=== PATIENT | female | born 1980 | race Caucasian/White ===

== ENCOUNTER 2016-11-01 12:17 | Emergency (ER) | payer OTHER ==
[2016-11-01 12:22] VITALS: BP 150/82; PULSE 107; TEMP 98.3; BMI 35.2
--- NOTE | 2016-11-01 13:00 | PDOC ---
"History of Present Illness - General Chief Complaint: Injury Stated Complaint: INJURY Time Seen by Provider: 11/01/16 12:29 History Source: Patient Exam Limitations: No Limitations - History of Present Illness Initial Comments: 11/01/16 13:44 My chief complaint: Right knee pain after falling History of present illness: Patient is a 36-year-old female with no significant medical history here today complaining of severe right knee pain after falling onto her right knee 3 days ago. Patient has slight swelling of her medial knee answered breath patella knee. Patient is having difficulty ambulating due to pain. Patient is unable to take any pain medication due to allergy to acetaminophen, aspirin, and ibuprofen. Patient denies any other injuries. Patient denies hitting her head. Patient denies any numbness of her right leg. Occurred: reports: other (3 days ago ) Severity: reports: severe Pain Location: reports: lower extremity (right knee-pain ) Method of Injury: Yes: fall (unto rt. knee) Modifying Factors: improves with: immobilization Loss of Consciousness: no loss of consciousness Associated Symptoms (Fall): trouble walking Past History - Past Medical History Allergies/Adverse Reactions: Allergies Allergy/AdvReac Type Severity Reaction Status Date / Time acetaminophen Allergy Verified 11/01/16 12:19 aspirin Allergy Verified 11/01/16 12:19 ibuprofen Allergy Verified 11/01/16 12:19 Home Medications: Ambulatory Orders Tramadol HCl [Ultram -] 50 mg PO Q6H PRN #12 tablet MDD 4 11/01/16 Anemia: No Other medical history: none - Surgical History Abdominal Surgery: Yes (umb.hernia) - Reproductive History (#): 3 Para: 2 Spontaneous : 1 - Immunization History Immunization Up to Date: Yes - Psycho/Social/Smoking Cessation Hx Anxiety: No Suicidal Ideation: No Smoking History: Never smoked Have you smoked in the past 12 months: No Information on smoking cessation initiated: No Hx Alcohol Use: No Drug/Substance Use Hx: No Substance Use Type: None Hx Substance Use Treatment: No Review of Systems - Review of Systems Able to Perform ROS?: Yes Constitutional: No: Symptoms Reported HEENTM: No: Symptoms Reported Respiratory: No: Symptoms reported Cardiac (ROS): No: Symptoms Reported ABD/GI: No: Symptoms Reported : No: Symptoms Reported Musculoskeletal: Yes: Joint Pain (right knee pain with swelling ), Joint Swelling (rt. swelling ) Integumentary: No: Symptoms Reported Neurological: No: Symptoms reported *Physical Exam - Vital Signs Last Vital Signs Temp Pulse Resp BP Pulse Ox 98.3 F 107 H 18 150/82 100 11/01/16 12:20 11/01/16 12:20 11/01/16 12:20 11/01/16 12:20 11/01/16 12:20 - Physical Exam General Appearance: Yes: Appropriately Dressed Respiratory/Chest: positive: Lungs Clear, Normal Breath Sounds Cardiovascular: positive: Regular Rhythm, Regular Rate, S1, S2 Vascular Pulses: Dorsalis-Pedis (R): 4+ Musculoskeletal: positive: Normal Inspection. negative: CVA Tenderness, CVA Tenderness (R), CVA Tenderness (L) Extremity: positive: Normal Capillary Refill, Normal Range of Motion (rt. knee ) , Tender (rt. patella ), Swelling (rt. medial knee, rt. suprapatella ) Integumentary: positive: Normal Color, Swelling (rt. medial patella edema, rt. suprapatella ) Neurologic: positive: Normal Response, Respond to painful stimul (rt. leg ), Responsive. negative: Numbness, Sensory Deficit (rt. knee ) Procedures - Consent Consent obtained: Verbal, From Patient - Splinting Splint Location: Right: Knee Pre-Proc Neuro Vasc Exam: normal Pre-Made Type: knee immobilizer Post-Proc Neuro Vasc Exam: normal Complications: No Progress: 11/01/16 13:52 11/01/16 14:02 ED Treatment Course - ADDITIONAL ORDERS Additional order review: Laboratory Results 11/01/16 12:45 Urine HCG, Qual Negative Medical Decision Making - Medical Decision Making 11/01/16 13:43 Patient is a 36-year-old female with no significant medical history here today complaining of severe right knee pain after falling onto her right knee 3 days ago. Patient has slight swelling of her medial knee answered breath patella knee. Patient is having difficulty ambulating due to pain. Patient is unable to take any pain medication due to allergy to acetaminophen, aspirin, and ibuprofen. Patient denies any other injuries. Patient denies hitting her head. Patient denies any numbness of her right leg. Fall Rt. knee pain r/o fracture or joint effusion knee pain right PLAN: xray rt. knee no acute pathology, no jt effusion, DJD, medial swelling per Eloy Brasher rt. knee immoblizer ultram 50 mg po now than every 6 hrs prn pain # 12 tabs cane given 11/01/16 13:44 11/01/16 13:46 11/01/16 13:53 11/01/16 13:56 11/01/16 13:58 follow up with orthopedist 11/02/16 11/01/16 14:02 11/01/16 14:15 Search Terms: Zainab Gates, 1980 Search Date: 11/01/2016 02:15:18 PM The Drug Utilization Report below displays all of the controlled substance prescriptions, if any, that your patient has filled in the last twelve months. The information displayed on this report is compiled from pharmacy submissions to the Department, and accurately reflects the information as submitted by the pharmacies. This report was requested by: Bertha Massey | Reference #: [id number] Others' Prescriptions Patient Name: Zainab Gates Date: 1980 Address: [address] [place] [address] Sex: Female Rx Written Rx Dispensed Drug Quantity Days Supply Prescriber Name 02/18/2016 02/19/2016 oxycodone-acetaminophen 5-325 mg tab 20 5 Oleg Ramirez MD 02/14/2016 02/15/2016 tramadol hcl 50 mg tablet 14 3 Flaquita Jackson NP 11/01/16 19:08 *DC/Admit/Observation/Transfer Diagnosis at time of Disposition: Knee pain, right Qualifiers: Chronicity: acute Qualified Code(s): M25.561 - Pain in right knee Fall Qualifiers: Encounter type: initial encounter Qualified Code(s): W19.XXXA - Unspecified fall, initial encounter - Discharge Dispostion Disposition: HOME Condition at time of disposition: Stable - Prescriptions Prescriptions: Tramadol HCl [Ultram -] 50 mg PO Q6H PRN #12 tablet MDD 4 PRN Reason: Pain - Referrals Referrals: Jarred Ferrer MD [Staff Physician] - - Patient Instructions Additional Instructions: Keep knee immobilizer in place during the day may take off at night elevate your right leg as much as possible and apply ice every 2 hours for 15-20 minutes each time Use Cane for ambulation Call the orthopedist office tomorrow at 9 AM tell them that she was seen here today and that she will need follow-up for further evaluation of urine knee Return to emergency room if symptoms worsen or new symptoms develop however you need to follow up with the orthopedist as soon as possible Patient voiced understanding of discharge instructions and all questions were answered Mantenga el inmovilizador de fiordaliza en friedman lugar francis el da puede despegar en la noche elevar friedman pierna derecha tanto flo sea posible y aplicar hielo cada 2 horas francis 15-20 minutos cada vez Use Cane para la ambulacin Llame a la oficina de ortopedia maana a las 9 AM dgales que suki fue vista aqu hoy y que suki necesitar un seguimiento para natalya evaluacin ms profunda de la orina rodilla [place] a la merari de emergencias si los sntomas empeoran o si se desarrollan nuevos sntomas, sin embargo, usted necesita hacer un seguimiento con el ortopedista lo antes posible Comprensin del paciente sobre las instrucciones de guillermina y todas las preguntas fueron contestadas"
[2016-11-01] MEDS ORDERED: traMADol HCL 50 MG TABLET PO ONE (13:56)
[2016-11-01] MEDS ORDERED: traMADol HCL 50 MG TABLET ONE (14:06)
== END 2016-11-01 14:26 | disposition home or self-care (01) ==
LOC: JERFT 12:17
PROC: 2W3LXYZ Immobilization of Right Lower Extremity using Other Device (ICD-10-PCS; principal; 2016-11-01)
DX: M25.561 Pain in right knee (principal)
CPT/HCPCS: 29530; 73562-TC-RT; 84703; 99282-25

== ENCOUNTER 2017-07-11 16:57 | Inpatient (IN) | payer OTHER ==
[2017-07-11 17:01] VITALS: BMI 36.6
[2017-07-11] MEDS ORDERED: morphine CARPU-JECT 4 MG/1 ML DISP.SYRIN IVPUSH ONE ×2 (17:44→23:00)
[2017-07-11] MEDS ORDERED: morphine SULFATE 4 MG/ML VIAL ONE ×2 (17:52→23:36)
--- NOTE | 2017-07-11 18:15 | PDOC ---
History of Present Illness - General Chief Complaint: Pain, Acute Stated Complaint: STOMACH PAIN Time Seen by Provider: 07/11/17 17:35 - History of Present Illness Initial Comments: 07/11/17 18:11 36 y.o. female presents c/o 1 day h/o of abdominal pain. Patient states the pain is epigastric, sharp, constant, 10/10, radiating to her left side without any nausea/vomiting or diarrhea/constipation or fevers/chills. Patient states the pain is similar to the pain during her ventral hernia. Patient has been limitedly tolerating oral intake, but notes decreased appetite 2/2 to her symptoms. Patient notes her last BM was this morning and was normal. Patient' s LMP was last 2 weeks previous and she is currently in a sexually monagmous relationship with her . Past History - Past Medical History Allergies/Adverse Reactions: Allergies Allergy/AdvReac Type Severity Reaction Status Date / Time acetaminophen Allergy Verified 07/11/17 16:58 aspirin Allergy Verified 07/11/17 16:58 ibuprofen Allergy Verified 07/11/17 16:58 Home Medications: Ambulatory Orders NK [No Known Home Medication] 07/11/17 Anemia: No COPD: No Other medical history: DENIES. - Surgical History Abdominal Surgery: Yes (umb.hernia) - Reproductive History (#): 3 Para: 2 Spontaneous : 1 - Immunization History Immunization Up to Date: Yes - Suicide/Smoking/Psychosocial Hx Smoking History: Never smoked Have you smoked in the past 12 months: No Hx Alcohol Use: No Drug/Substance Use Hx: No Substance Use Type: None Hx Substance Use Treatment: No Review of Systems - Review of Systems Constitutional: No: Chills, Fever HEENTM: No: Recent change in vision Respiratory: No: Cough, Shortness of Breath Cardiac (ROS): No: Chest Pain ABD/GI: No: Diarrhea, Nausea, Vomiting, Abdominal cramping : No: Burning, Dysuria *Physical Exam - Vital Signs Last Vital Signs Temp Pulse Resp BP Pulse Ox 98.3 F 97 H 16 130/77 99 07/11/17 16:59 07/11/17 16:59 07/11/17 16:59 07/11/17 16:59 07/11/17 16:59 - Physical Exam General Appearance: Yes: Nourished, Obese HEENT: positive: EOMI, MICK Neck: positive: Trachea midline, Supple Respiratory/Chest: positive: Lungs Clear Cardiovascular: positive: S1, S2 Gastrointestinal/Abdominal: positive: Normal Bowel Sounds, Tenderness ( epigastric, LUQ/LLQ). negative: Guarding, Rebound, Hernia, Mass Musculoskeletal: negative: CVA Tenderness (R), CVA Tenderness (L) Integumentary: positive: Normal Color, Dry, Warm Neurologic: positive: Fully Oriented, Alert ED Treatment Course - LABORATORY CBC & Chemistry Diagram: 07/11/17 18:00 07/11/17 17:47 - Medications Given in the ED: ED Medications Discontinued Medications Generic Name Dose Route Start Last Admin Trade Name Freq PRN Reason Stop Dose Admin Morphine Sulfate 4 mg 07/11/17 17:44 07/11/17 18:08 Morphine Injection - IVPUSH 07/11/17 17:45 4 mg ONCE ONE Administration Medical Decision Making - Medical Decision Making 07/12/17 03:38 36 y.o. female with epigastric abdominal pain without systemic signs of infection. Patient exquisitely tender on PE. DDx includes early onset appendicitis, acute fer, hernia as well as diverticular disease (some radiation to L side) and . Will obtain CT Abdomen, GB U/S. Pain control with Morphine. Patient to be signed out Dr. Cotter (Resident) and Dr. Cazares (Attending). *DC/Admit/Observation/Transfer Diagnosis at time of Disposition: Cholecystitis, Intractable abdominal pain, Gallstones - Discharge Dispostion Condition at time of disposition: Guarded - Referrals - Patient Instructions - Post Discharge Activity
[2017-07-11 18:18] LABS: BASO % 0.4 % (0-2.0); EOS % 1.7 % (0-4.5); HEMATOCRIT 37.2 % (32.4-45.2); HEMOGLOBIN 12.4 GM/dL (10.7-15.3); LYMPH % 26.6 % (8-40); MCH 27.8 pg (25.7-33.7); MCHC 33.4 g/dl (32.0-36.0); MEAN CELL VOLUME 83.4 fl (80-96); MEAN PLT VOLUME 9.4 fl (7.5-11.1); MONO % 6.9 % (3.8-10.2); NEUT % 64.4 % (42.8-82.8); PLATELET COUNT 287 K/MM3 (134-434); RBC 4.46 M/mm3 (3.60-5.2); WHITE BLOOD COUNT 8.7 K/mm3 (4.0-10.0)
[2017-07-11 18:35] LABS: INR 1.04 (0.82-1.09); PROTHROMBIN TIME (PATIENT) 11.7 SEC (9.98-11.88)
[2017-07-11] MEDS ORDERED: FAMOTIDINE IV 20 MG/12 ML VIAL IVPUSH ONE (18:44)
[2017-07-11] MEDS ORDERED: PANTOPRAZOLE SODIUM 40 MG VIAL IVPUSH ONE (18:44)
[2017-07-11] MEDS ORDERED: MAG HYDROX/AL HYDROX/SIMETH 30 ML UNIT-DOSE CUP PO ONE (18:44)
[2017-07-11] MEDS ORDERED: SODIUM CHLORIDE 1,000 ML IV STA (18:44)
[2017-07-11] MEDS ORDERED: MAG HYDROX/AL HYDROX/SIMETH 30 ML UNIT-DOSE CUP ONE (18:46)
[2017-07-11] MEDS ORDERED: PANTOPRAZOLE SODIUM 40 MG VIAL ONE (18:47)
[2017-07-11] MEDS ORDERED: ONDANSETRON 4 MG/2 ML VIAL ONE ×2 (18:47→20:25)
[2017-07-11 18:48] LABS: ALBUMIN 3.6 g/dl (3.4-5.0); ANION GAP 9 (8-16); BILIRUBIN,TOTAL 0.7 mg/dL (0.2-1.0); BLOOD UREA NITROGEN 15 mg/dL (7-18); CALCIUM 8.9 mg/dL (8.5-10.1); CHLORIDE 103 mmol/L (98-107); CO2 28 mmol/L (21-32); CREATININE 0.6 mg/dL (0.55-1.02); GLUCOSE,RANDOM 83 mg/dL (74-106); LIPASE 171 U/L (73-393); POTASSIUM 4.3 mmol/L (3.5-5.1); SGOT/AST 15 U/L (15-37); SGPT/ALT 24 U/L (12-78); SODIUM 140 mmol/L (136-145); TOT PROT 7.6 g/dl (6.4-8.2)
[2017-07-11 18:49] LABS: ALK PHOS 54 U/L (45-117)
--- NOTE | 2017-07-11 18:54 | PDOC ---
Attending Attestation - Resident Resident Name: JesseZahira - ED Attending Attestation I have performed the following: I have examined & evaluated the patient, The case was reviewed & discussed with the resident, I agree w/resident's findings & plan, Exceptions are as noted - HPI HPI: 07/11/17 18:55 36 old female with past mental history of obesity, umbilical hernia surgery presents with upper abdominal pain and vomiting. Patient reported the pacer yesterday and is intermittent. She reports some nausea but denies any fevers or chills. Denies diarrhea. Denies dysuria. - Physicial Exam PE: 07/11/17 18:56 GENERAL: Awake, alert, and fully oriented. Uncomfortable appearing. Obese HEAD: No signs of trauma EYES: PERRLA, EOMI, sclera anicteric, conjunctiva clear ENT: Auricles normal inspection, hearing grossly normal, nares patent. NECK: Normal ROM, supple LUNGS: Breath sounds equal, clear to auscultation bilaterally. No wheezes, and no crackles HEART: Regular rate and rhythm, normal S1 and S2, no murmurs, rubs or gallops ABDOMEN: Soft, TTP epigastric. Castro sign negative. No guarding, no rebound. No masses EXTREMITIES: Normal range of motion, no edema. No clubbing or cyanosis. No cords, erythema, or tenderness NEUROLOGICAL: Cranial nerves II through XII grossly intact. Normal speech, normal gait SKIN: Warm, Dry, normal turgor, no rashes or lesions noted. - Medical Decision Making 07/11/17 19:00 Vital Signs Temp Pulse Resp BP Pulse Ox 98.3 F 97 H 16 130/77 99 07/11/17 16:59 07/11/17 16:59 07/11/17 16:59 07/11/17 16:59 07/11/17 16:59 Differential includes gastritis, pancreatitis, biliary colic, bowel obstruction. Labs, Ultrasound, CT abdomen and pelvis. Reassess. <Samson Valle - Last Filed: 07/11/17 18:44> - Medical Decision Making 07/11/17 21:30 Patient Name: KALEN MATA THIS IS A PRELIMINARY REPORT FROM [facility] DATE OF SERVICE: 2017-07-11 19:56:09 IMAGES: 481 EXAM: ABDOMEN \T\ PELVIS CT W/O CONTR HISTORY: Abdominal pain COMPARISON: None. FINDINGS: There is mild dependent atelectasis at the lung bases The gallbladder is filled with stones. The gallbladder wall does not appear significantly thickened. There is no pericholecystic edema. Correlate clinically for right upper quadrant symptoms. Consider further evaluation with ultrasound The liver is mildly enlarged The unenhanced upper abdominal visceral organs are otherwise unremarkable. There is no evidence of obstructive uropathy Umbilical hernia containing fat appears uncomplicated No bowel distention A normal appendix is visualized Mild to moderate fecal retention predominantly in the right and transverse colon An IUD is noted which appears to be normally positioned within the uterus There is no intra-abdominal free air or free fluid THIS DOCUMENT HAS BEEN ELECTRONICALLY SIGNED 07/11/17 22:26 Patient Name: KALEN MATA THIS IS A PRELIMINARY REPORT FROM [facility] DATE OF SERVICE: 2017-07-11 20:49:16 IMAGES: 52 EXAM: Ultrasound abdomen right upper quadrant HISTORY: Right upper quadrant COMPARISON: Abdomen and pelvis CT from earlier on the same date FINDINGS: The gallbladder is filled with shadowing stones with wall echo shadowing. The gallbladder wall is thickened measuring 4.1 mm. No definite pericholecystic fluid although shadowing limits evaluation somewhat. Presence or absence of a sonographic Castro's sign was not reported Findings are concerning for cholecystitis. If there is ongoing clinical concern further evaluation with hepatobiliary scan may be helpful The common bile duct is within normal limits measuring 3.5 mm The liver is enlarged measuring 19.5 cm in sagittal length. Heterogeneous areas of increased echogenicity may be related to steatosis. No intrahepatic biliary dilatation. The portal and hepatic veins are patent Visualized portions of the pancreatic head and body appear normal. The tail is obscured by overlying bowel gas The right kidney and visualized portions of the abdominal aorta are unremarkable THIS DOCUMENT HAS BEEN ELECTRONICALLY SIGNED 07/12/17 01:47 Pt admitted to surgeon Dr. Rose. <Ana Cazares - Last Filed: 07/12/17 01:47>
[2017-07-11] MEDS ORDERED: ACETAMINOPHEN 1000 MG/100 ML VIAL (NON FORMULARY) IVPB ONE (19:23)
--- NOTE | 2017-07-11 19:23 | PDOC ---
*Physical Exam - Vital Signs Last Vital Signs Temp Pulse Resp BP Pulse Ox 98.3 F 97 H 16 130/77 99 07/11/17 16:59 07/11/17 16:59 07/11/17 16:59 07/11/17 16:59 07/11/17 16:59 07/11/17 19:15 36 YOF with h/o ventral hernia who p/w one day epigastric pain radiating to left side similar to prior ventral hernia pain. No f/c/n/v/d/c, BM in the past day was normal. Blood labs unremarkable, awaiting UA and Cx, US gallbladder, CT abdomen/pelvis w/o contrast. Ofirmev ordered as patient remains in pain after 4 mg morphine. May consider Dilaudid if persistent pain after this. Patient still nauseated and some dry heaves so another 4 mg Zofran ordered. - Physical Exam General Appearance: Yes: Nourished, Moderate Distress, Obese, Other (tearful and very uncomfortable appearing adult female, answering questions appropriately , Mohawk-speaking) Gastrointestinal/Abdominal: positive: Tender (moderate epigastric tenderness to palpation, no palpable hernia), Soft. negative: Pulsatile Mass, Hepatomegaly, Spleenomegaly ED Treatment Course - LABORATORY CBC & Chemistry Diagram: 07/11/17 18:00 07/11/17 17:47 - ADDITIONAL ORDERS Additional order review: Laboratory Results 07/11/17 07/11/17 07/11/17 18:00 17:47 17:47 PT with INR 11.70 INR 1.04 Sodium Potassium Chloride Carbon Dioxide Anion Gap BUN Creatinine Creat Clearance w eGFR Random Glucose Lactic Acid Calcium Total Bilirubin AST ALT Alkaline Phosphatase Creatine Kinase 85 Troponin I < 0.02 Total Protein Albumin Lipase Serum , Qual Negative 07/11/17 07/11/17 17:47 17:47 PT with INR INR Sodium 140 Potassium 4.3 Chloride 103 Carbon Dioxide 28 Anion Gap 9 BUN 15 Creatinine 0.6 Creat Clearance w eGFR > 60 Random Glucose 83 Lactic Acid 1.5 Calcium 8.9 Total Bilirubin 0.7 D AST 15 ALT 24 Alkaline Phosphatase 54 Creatine Kinase Troponin I Total Protein 7.6 Albumin 3.6 Lipase 171 Serum , Qual 07/11/17 18:00 RBC 4.46 MCV 83.4 MCHC 33.4 RDW 14.0 MPV 9.4 Neutrophils % 64.4 Lymphocytes % 26.6 Monocytes % 6.9 Eosinophils % 1.7 Basophils % 0.4 - Medications Given in the ED: ED Medications Discontinued Medications Generic Name Dose Route Start Last Admin Trade Name Avinash PRN Reason Stop Dose Admin Al Hydroxide/Mg Hydroxide 30 ml 07/11/17 18:44 07/11/17 18:45 Mylanta Oral Suspension - PO 07/11/17 18:45 30 ml ONCE ONE Administration Famotidine 20 mg in 12 mls @ 144 mls/hr 07/11/17 18:44 07/11/17 18:45 Pepcid 20 Mg/12 Ml Push IVPUSH 07/11/17 18:48 144 mls/hr ONCE ONE Administration Morphine Sulfate 4 mg 07/11/17 17:44 07/11/17 18:08 Morphine Injection - IVPUSH 07/11/17 17:45 4 mg ONCE ONE Administration Pantoprazole Sodium 40 mg 07/11/17 18:44 07/11/17 18:45 Protonix Iv IVPUSH 07/11/17 18:45 40 mg ONCE ONE Administration Medical Decision Making - Medical Decision Making Patient notes no Tylenol allergy. Allergy only to ASA. 07/11/17 21:[address] abdomen/pelvis the GB is filled with stones, otherwise no obvious e/o cholecystitis or obstruction. Mild hepatomegaly, IUD with good placement in uterus, small fat-containing umbilical hernia. 07/11/17 23:01 On RUQ US the gallbladder is filled with shadowing stones, there is wall thickening (4.1mm). Spoke with Dr. Rose who will try to add the patient onto the OR schedule tomorrow. Patient's pain was initially controlled after Ofirmev, now it is coming back. 2 mg Morphine IV ordered. 07/12/17 00:14 Decision to Admit order placed to OR, Dr. Rose. Patient has no PCP currently. *DC/Admit/Observation/Transfer Diagnosis at time of Disposition: Cholecystitis, Intractable abdominal pain, Gallstones - Discharge Dispostion Condition at time of disposition: Guarded Admit: Yes - Referrals - Patient Instructions - Post Discharge Activity
[2017-07-11] MEDS ORDERED: ONDANSETRON 4 MG/2 ML VIAL IVPUSH ONE (19:41)
[2017-07-11] MEDS ORDERED: ACETAMINOPHEN INJECTION 100 ML IVPB ONE (20:24)
[2017-07-12] MEDS ORDERED: cefOXitin SODIUM 2 GM VIAL (RESTRICTED TO ID) IVPB ONE ×3 (00:11→23:00)
[2017-07-12] MEDS ORDERED: CEFOXITIN SODIUM 2 GM in DEXTROSE 5%-WATER - 100 ML IVPB ONE ×2 (00:30→23:00)
[2017-07-12] MEDS ORDERED: ONDANSETRON 4 MG/2 ML VIAL IVPUSH PRN (01:00)
[2017-07-12] MEDS: DEXTROSE 5%-0.45% SALINE 1,000 ML IV SCH ×2 (01:02→11:23)
[2017-07-12] MEDS ORDERED: MORPHINE SULFATE 10 MG/1 ML *VIAL ONE (06:01)
[2017-07-12] MEDS: morphine SULFATE 4 MG/ML VIAL IVPUSH PRN ×2 (06:15→09:45)
[2017-07-12] MEDS ORDERED: FAMOTIDINE 20 MG/50 ML IVPB 20 MG/50 ML MG IVPB SCH (10:00)
[2017-07-12 10:49] LABS: BASO % 0.4 % (0-2.0); EOS % 2.1 % (0-4.5); HEMATOCRIT 35.8 % (32.4-45.2); HEMOGLOBIN 11.9 GM/dL (10.7-15.3); LYMPH % 34.9 % (8-40); MCH 27.8 pg (25.7-33.7); MCHC 33.3 g/dl (32.0-36.0); MEAN CELL VOLUME 83.5 fl (80-96); MEAN PLT VOLUME 8.9 fl (7.5-11.1); MONO % 6.3 % (3.8-10.2); NEUT % 56.3 % (42.8-82.8); PLATELET COUNT 257 K/MM3 (134-434); RBC 4.28 M/mm3 (3.60-5.2); RDW 14.1 % (11.6-15.6); WHITE BLOOD COUNT 6.6 K/mm3 (4.0-10.0)
[2017-07-12 11:06] LABS: ANION GAP 6 (8-16); BILIRUBIN,TOTAL 1.1 mg/dL (0.2-1.0); BLOOD UREA NITROGEN 7 mg/dL (7-18); CALCIUM 7.7 mg/dL (8.5-10.1); CHLORIDE 107 mmol/L (98-107); CO2 26 mmol/L (21-32); CREATININE 0.5 mg/dL (0.55-1.02); GLUCOSE,RANDOM 79 mg/dL (74-106); LIPASE 130 U/L (73-393); POTASSIUM 3.8 mmol/L (3.5-5.1); SGOT/AST 11 U/L (15-37); SGPT/ALT 18 U/L (12-78); SODIUM 139 mmol/L (136-145); TOT PROT 6.4 g/dl (6.4-8.2)
[2017-07-12 11:07] LABS: ALBUMIN 0.5 g/dl (3.4-5.0); ALK PHOS 44 U/L (45-117)
--- NOTE | 2017-07-12 12:49 | HP ---
Admitting History and Physical - Admission Chief Complaint: epigastric pain radiating to LUQ, nausea History of Present Illness: 36yo obese F with no sig medical hx, s/p laparoscopic umbilical hernia repair, 2 , IUD placement, presented to ER with 2d of epigastric pain radiating toward LUQ, associated with nausea but no vomiting, decreased po intake, chills but no fever, some difficulty breathing secondary to pain. In ER, she was afebrile, wbc normal, LFTs and lipase normal, and CT showed gallbladder full of stones, distended, suspicious for cholecystitis. US then confirmed many shadowing stones and wall shadowing with slightly thickened wall. She got IVF and was given a dose of Cefoxitin early am and has been NPO. Her pain has improved with medication, nausea in ER responded to multiple doses of Zofran. She voided twice yesterday, only once so far today. She has no PCP. History Source: Patient Limitations to Obtaining History: Language Barrier (Kiswahili - facilitated by Raghav Villeda at bedside) - Past Medical History ...LMP: 06/10/17 ...LMP Comment: IUD in place 7 mths ago, light period ...: No Additional Past Medical History: umbilical hernia - Past Surgical History Past Surgical History: Yes: Hernia Repair (laparoscopic umbilical hernia repair) - Smoking History Smoking history: Never smoked Have you smoked in the past 12 months: No - Alcohol/Substance Use Hx Alcohol Use: Yes (social) History of Substance Use: reports: None - Social History Usual Living Arrangement: Yes: With Child ADL: Independent Home Medications - Allergies Allergies/Adverse Reactions: Allergies Allergy/AdvReac Type Severity Reaction Status Date / Time aspirin Allergy Rash Verified 07/12/17 12:46 - Home Medications Home Medications: Ambulatory Orders NK [No Known Home Medication] 07/11/17 Family Disease History - Family Disease History Family History: Unremarkable Review of Systems - Review of Systems Constitutional: reports: Chills. denies: Fever Eyes: denies: Blurred Vision, Recent Change in Vision HENT: denies: Hearing Loss, Throat Pain Neck: denies: Swollen Glands, Tenderness Cardiovascular: denies: Chest Pain, Palpitations Respiratory: reports: Other (had some difficulty breathing secondary to pain couple days ago). denies: Cough, SOB Gastrointestinal: reports: Abdominal Pain (with hpi), Constipation (tends to normally), Nausea (with hpi). denies: Diarrhea, Vomiting Genitourinary: denies: Burning, Dysuria Musculoskeletal: denies: Back Pain, Joint Pain, Muscle Pain Integumentary: denies: Change in Color, Rash Neurological: denies: Dizziness, Headache Physical Examination Vital Signs: Vital Signs Temperature 98.5 F 07/12/17 09:00 Pulse Rate 75 07/12/17 09:00 Respiratory Rate 20 07/12/17 09:00 Blood Pressure 117/81 07/12/17 09:00 O2 Sat by Pulse Oximetry (%) 98 07/12/17 09:00 Constitutional: Yes: No Distress, Calm, Obese Eyes: Yes: Conjunctiva Clear, EOM Intact. No: Sclera Icterus HENT: Yes: Atraumatic, Normocephalic Neck: Yes: Supple, Trachea Midline Cardiovascular: Yes: Regular Rate and Rhythm. No: Murmur Respiratory: Yes: Regular, CTA Bilaterally Gastrointestinal: Yes: Normal Bowel Sounds, Soft, Abdomen, Obese, Hernia ( umbilical small bulge palpable (and seen on CT)), Tenderness (mild epigastric RUQ, LUQ less, no R/G), Other (healed laparoscopic scars). No: Distention ...Rectal Exam: Yes: Deferred Renal/: No: CVA Tenderness - Left, CVA Tenderness - Right Musculoskeletal: No: Back Pain (no direct tenderness), Joint Swelling Extremities: No: Cool, Cyanosis Edema: No Peripheral Pulses WNL: Yes Integumentary: No: Jaundice, Rash Neurological: Yes: Alert, Oriented Psychiatric: Yes: Alert, Oriented Labs: CBC, BMP 07/12/17 10:20 07/12/17 10:20 CMP Sodium 139 mmol/L (136-145) 07/12/17 10:20 Potassium 3.8 mmol/L (3.5-5.1) 07/12/17 10:20 Chloride 107 mmol/L (98-107) 07/12/17 10:20 Carbon Dioxide 26 mmol/L (21-32) 07/12/17 10:20 Anion Gap 6 (8-16) L 07/12/17 10:20 BUN 7 mg/dL (7-18) 07/12/17 10:20 Creatinine 0.5 mg/dL (0.55-1.02) L 07/12/17 10:20 Creat Clearance w eGFR > 60 (>60) 07/12/17 10:20 Random Glucose 79 mg/dL (74-106) 07/12/17 10:20 Lactic Acid 1.5 mmol/L (0.0-2.0) 07/11/17 17:47 Calcium 7.7 mg/dL (8.5-10.1) L 07/12/17 10:20 Total Bilirubin 1.1 mg/dL (0.2-1.0) H D 07/12/17 10:20 AST 11 U/L (15-37) L 07/12/17 10:20 ALT 18 U/L (12-78) 07/12/17 10:20 Alkaline Phosphatase 44 U/L (45-117) L 07/12/17 10:20 Creatine Kinase 85 IU/L (26-192) 07/11/17 17:47 Troponin I < 0.02 ng/ml (0.00-0.05) 07/11/17 17:47 Total Protein 6.4 g/dl (6.4-8.2) 07/12/17 10:20 Albumin 0.5 g/dl (3.4-5.0) L 07/12/17 10:20 Lipase 130 U/L (73-393) 07/12/17 10:20 Serum , Qual Negative 07/11/17 17:47 bili up a little, others stable or down (normal) INR, PTT INR 1.04 (0.82-1.09) 07/11/17 18:00 Imaging - Results Cat Scan: Report Reviewed, Image Reviewed (images personally seen, gallbladder distended and large, full of stones, no biliary dilation seen) Ultrasound: Report Reviewed, Image Reviewed (lots of shadowing - gb appears full of stones, slightly thickened wall, no definite fluid around, cbd normal) Problem List - Problems (1) Calculus of gallbladder with acute cholecystitis without obstruction Assessment/Plan: admit 23H/satellite NPO until postop, IVF DVT prophylaxis periop antibiotics Discussed with patient risks, benefits and alternatives of laparoscopic possible open cholecystectomy, including but not limited to bleeding, infection , injury to adjacent structures, bile leak or ductal injury, intraabdominal abscess, need for further procedures, hernia; alternatives include antibiotics, delayed or no surgery - risks of this include sepsis, recurrence of cholecystitis, pancreatitis, . Patient desires to proceed with operation - will take to OR for above. Informed consent signed for same. pain meds prn Code(s): K80.00 - CALCULUS OF GALLBLADDER W ACUTE CHOLECYST W/O OBSTRUCTION (2) Umbilical hernia without obstruction and without gangrene Assessment/Plan: will avoid this area during surgery - recurrent hernia present with presumed underlying mesh Code(s): K42.9 - UMBILICAL HERNIA WITHOUT OBSTRUCTION OR GANGRENE (3) Epigastric pain Code(s): R10.13 - EPIGASTRIC PAIN (4) Obesity (BMI 35.0-39.9 without comorbidity) Code(s): E66.9 - OBESITY, UNSPECIFIED
[2017-07-12] MEDS ORDERED: BUPIVACAINE HCL/PF 0.5% (5MG/ML) 10 ML VIAL ONE (13:49)
[2017-07-12] MEDS ORDERED: BENZOIN/ALOE VERA/STORAX/TOLU 58 ML BOTTLE ONE (13:51)
[2017-07-12] MEDS ORDERED: fentaNYL CITRATE 250 MCG/5 ML VIAL ONE (13:54)
[2017-07-12] MEDS ORDERED: PROPOFOL 20 ML ONE (13:54)
[2017-07-12] MEDS ORDERED: MIDAZOLAM HCL 2 MG/2 ML SINGLE DOSE VIAL ONE (13:54)
[2017-07-12] MEDS ORDERED: CEFOXITIN SODIUM 2 GM IVPB ONE (13:55)
[2017-07-12] MEDS ORDERED: SUCCINYLCHOLINE CHLORIDE 200 MG/10 ML VIAL ONE (14:12)
[2017-07-12] MEDS ORDERED: cefOXitin SODIUM 1 GM VIAL (RESTRICTED TO ID) IVPB ONE (14:25)
[2017-07-12] MEDS ORDERED: DEXAMETHASONE SOD PHOSPHATE 4 MG/1 ML VIAL ONE (14:28)
[2017-07-12] MEDS ORDERED: BUPIVACAINE HCL/PF 0.5% (5MG/ML) 10 ML VIAL IJ ONE (15:46)
[2017-07-12] MEDS ORDERED: NEOSTIGMINE METHYLSULFATE 0.5 MG/ML - 10 ML MDV ONE (15:56)
[2017-07-12] MEDS ORDERED: GLYCOPYRROLATE 0.2 MG/1 ML VIAL ONE (15:57)
--- NOTE | 2017-07-12 16:11 | OP ---
Operative Note - Note: Operative Date: 07/12/17 Pre-Operative Diagnosis: acute cholecystitis Operation: laparoscopic cholecystectomy Findings: large gallbladder palpated to be full of tiny stones; critical view identified Post-Operative Diagnosis: Same as Pre-op Surgeon: Boo Rose Color Checker Roving Or Yarn: Wesley Villegas Anesthesiologist/DIRECTOR OF RELIGIOUS LIFE: Rosanna Evans Anesthesia: General, Local (20ml 0.5% marcaine) Specimens Removed: gallbladder to pathology Estimated Blood Loss (mls): 5 Fluid Volume Replaced (mls): 1,100 (crystalloid) Operative Report Dictated: Yes
[2017-07-12] MEDS ORDERED: LACTATED RINGERS SOLUTION 1,000 ML IV SCH (16:15)
[2017-07-12] MEDS ORDERED: ACETAMINOPHEN 325 MG TABLET (FP) PO PRN (16:15)
[2017-07-12] MEDS ORDERED: IBUPROFEN 600 MG TABLET (FP) PO PRN (16:15)
[2017-07-12] MEDS ORDERED: traMADol HCL 50 MG TABLET PO PRN ×2 (16:16→16:33)
[2017-07-12] MEDS ORDERED: morphine SULFATE 4 MG/ML VIAL IVPUSH PRN (16:19)
[2017-07-12] MEDS: LACTATED RINGERS SOLUTION 1,000 ML IV SCH (20:55)
[2017-07-12] MEDS: MORPHINE SULFATE 10 MG/1 ML *VIAL IVPUSH PRN (20:56)
[2017-07-12] MEDS: FAMOTIDINE 20 MG/50 ML IVPB 20 MG/50 ML MG IVPB SCH (21:01)
[2017-07-13] MEDS: LACTATED RINGERS SOLUTION 1,000 ML IV SCH ×2 (06:22→16:35)
[2017-07-13] MEDS: MORPHINE SULFATE 10 MG/1 ML *VIAL IVPUSH PRN ×2 (06:24→15:00)
[2017-07-13 07:49] LABS: BASO % 0.4 % (0-2.0); EOS % 0.2 % (0-4.5); HEMATOCRIT 35.1 % (32.4-45.2); HEMOGLOBIN 11.8 GM/dL (10.7-15.3); LYMPH % 19.3 % (8-40); MCHC 33.6 g/dl (32.0-36.0); MEAN CELL VOLUME 83.4 fl (80-96); MEAN PLT VOLUME 9.2 fl (7.5-11.1); MONO % 6.5 % (3.8-10.2); NEUT % 73.6 % (42.8-82.8); PLATELET COUNT 267 K/MM3 (134-434); RBC 4.21 M/mm3 (3.60-5.2); RDW 13.5 % (11.6-15.6); WHITE BLOOD COUNT 10.8 K/mm3 (4.0-10.0)
[2017-07-13 08:09] LABS: ALBUMIN 3.2 g/dl (3.4-5.0); ALK PHOS 45 U/L (45-117); ANION GAP 7 (8-16); BILIRUBIN,TOTAL 1.2 mg/dL (0.2-1.0); BLOOD UREA NITROGEN 7 mg/dL (7-18); CHLORIDE 105 mmol/L (98-107); CO2 26 mmol/L (21-32); CREATININE 0.5 mg/dL (0.55-1.02); GLUCOSE,RANDOM 80 mg/dL (74-106); LIPASE 112 U/L (73-393); POTASSIUM 3.8 mmol/L (3.5-5.1); SGOT/AST 28 U/L (15-37); SGPT/ALT 35 U/L (12-78); SODIUM 138 mmol/L (136-145); TOT PROT 6.2 g/dl (6.4-8.2)
[2017-07-13] MEDS: FAMOTIDINE 20 MG/50 ML IVPB 20 MG/50 ML MG IVPB SCH ×2 (10:08→21:43)
[2017-07-13] MEDS: IBUPROFEN 600 MG TABLET (FP) PO PRN ×2 (12:04→18:41)
--- NOTE | 2017-07-13 12:27 | PN ---
Progress Note, Physician Chief Complaint: Pt day #1 s/p lapchole - Current Medication List Current Medications: Active Medications Acetaminophen (Tylenol -) 650 mg PO Q6H PRN PRN Reason: PAIN Lactated Ringer's (Lactated Ringers Solution) 1,000 mls @ 125 mls/hr IV ASDIR LOKESH Last Admin: 07/13/17 06:22 Dose: 125 mls/hr Famotidine/Sodium Chloride (Pepcid 20 Mg Premixed Ivpb -) 20 mg in 50 mls @ 100 mls/hr IVPB BID LOKESH Last Admin: 07/13/17 10:08 Dose: 100 mls/hr Ibuprofen (Motrin -) 600 mg PO Q6H PRN PRN Reason: PAIN Last Admin: 07/13/17 12:04 Dose: 600 mg Morphine Sulfate (Morphine Injection -) 2 mg IVPUSH Q4H PRN PRN Reason: breakthrough pain Last Admin: 07/13/17 06:24 Dose: 2 mg Ondansetron HCl (Zofran Injection) 4 mg IVPUSH Q4H PRN PRN Reason: NAUSEA Tramadol HCl (Ultram -) 50 mg PO Q8H PRN PRN Reason: breakthrough pain ONLY Last Admin: 07/13/17 10:01 Dose: 50 mg - Objective Vital Signs: Vital Signs Temperature 98.9 F 07/13/17 09:54 Pulse Rate 93 H 07/13/17 09:54 Respiratory Rate 18 07/13/17 09:54 Blood Pressure 111/53 07/13/17 09:54 O2 Sat by Pulse Oximetry (%) 96 07/12/17 21:00 Labs: CBC, BMP 07/13/17 06:00 07/13/17 06:00 INR, PTT INR 1.04 (0.82-1.09) 07/11/17 18:00 Assessment/Plan Doing well s/p GA for lap fer. No apparent anesthetic issues/complications; continue current management
[2017-07-13] MEDS: ACETAMINOPHEN 325 MG TABLET (FP) PO PRN (13:00)
[2017-07-13] MEDS: ONDANSETRON 4 MG/2 ML VIAL IVPUSH PRN ×2 (14:40→18:42)
[2017-07-13 15:18] LABS: URINE APPEARANCE CLEAR; URINE BILIRUBIN NEGATIVE (NEGATIVE); URINE BLOOD NEGATIVE (NEGATIVE); URINE COLOR STRAW; URINE GLUCOSE (UA) NEGATIVE (NEGATIVE); URINE KETONE NEGATIVE (NEGATIVE); URINE LEUK ESTERASE TRACE (NEGATIVE); URINE NITRITE NEGATIVE (NEGATIVE); URINE PROTEIN NEGATIVE (NEGATIVE); URINE UROBILINOGEN NEGATIVE mg/dL (0.2-1.0)
[2017-07-13 15:25] LABS: EPI CELLS RARE /HPF (FEW); URINE BACTERIA RARE /hpf (NONE SEEN); URINE MUCUS RARE
[2017-07-13] MEDS ORDERED: ACETAMINOPHEN 1000 MG/100 ML VIAL (NON FORMULARY) IVPB ONE (20:00)
[2017-07-13] MEDS ORDERED: oxyCODONE HCL 5 MG TABLET PO PRN (20:02)
[2017-07-13] MEDS ORDERED: DOCUSATE SODIUM 100 MG CAPSULE (FP) PO SCH (22:00)
[2017-07-14] MEDS: IBUPROFEN 600 MG TABLET (FP) PO PRN ×2 (00:45→07:00)
--- NOTE | 2017-07-14 00:53 | PN ---
Progress Note (short form) - Note Progress Note: Pt seen around noon and again around 7:30 pm. C/O pain in subxiphoid/epigastric area, incisional and with breathing and moving around. Had not been hungry yet, had not eaten by lunchtime. Later in afternoon, walked 3 times with nursing, had some clear liquids for dinner, but got nauseated with food. Also has felt a bit dizzy. Has gotten multiple pain medications, but still having 7/10 pain. Passed some gas, no BM yet. Vital Signs - 24 hr 07/13/17 07/13/17 07/13/17 01:51 06:06 09:00 Temperature 99.1 F 99.3 F Pulse Rate 98 H 86 Respiratory 20 20 Rate Blood Pressure 98/55 106/62 O2 Sat by Pulse 100 Oximetry (%) 07/13/17 07/13/17 07/13/17 09:54 14:38 18:00 Temperature 98.9 F 97.9 F 98.1 F Pulse Rate 93 H 83 76 Respiratory 18 20 20 Rate Blood Pressure 111/53 125/65 100/65 O2 Sat by Pulse Oximetry (%) 07/13/17 07/13/17 21:00 22:00 Temperature 98.6 F Pulse Rate 80 Respiratory 20 20 Rate Blood Pressure 106/52 O2 Sat by Pulse 96 Oximetry (%) PE: obese, uncomfortable but resting quietly abd soft, obese, tender incisionally/epigastric/subxiphoid dressings x5 c/d/i no edema or cyanosis A&O CBCD WBC 10.8 K/mm3 (4.0-10.0) H D 07/13/17 06:00 RBC 4.21 M/mm3 (3.60-5.2) 07/13/17 06:00 Hgb 11.8 GM/dL (10.7-15.3) 07/13/17 06:00 Hct 35.1 % (32.4-45.2) 07/13/17 06:00 MCV 83.4 fl (80-96) 07/13/17 06:00 MCHC 33.6 g/dl (32.0-36.0) 07/13/17 06:00 RDW 13.5 % (11.6-15.6) 07/13/17 06:00 Plt Count 267 K/MM3 (134-434) 07/13/17 06:00 MPV 9.2 fl (7.5-11.1) 07/13/17 06:00 CMP Sodium 138 mmol/L (136-145) 07/13/17 06:00 Potassium 3.8 mmol/L (3.5-5.1) 07/13/17 06:00 Chloride 105 mmol/L (98-107) 07/13/17 06:00 Carbon Dioxide 26 mmol/L (21-32) 07/13/17 06:00 Anion Gap 7 (8-16) L 07/13/17 06:00 BUN 7 mg/dL (7-18) 07/13/17 06:00 Creatinine 0.5 mg/dL (0.55-1.02) L 07/13/17 06:00 Creat Clearance w eGFR > 60 (>60) 07/13/17 06:00 Calcium 8.0 mg/dL (8.5-10.1) L 07/13/17 06:00 Total Bilirubin 1.2 mg/dL (0.2-1.0) H 07/13/17 06:00 AST 28 U/L (15-37) 07/13/17 06:00 ALT 35 U/L (12-78) 07/13/17 06:00 Alkaline Phosphatase 45 U/L (45-117) 07/13/17 06:00 Total Protein 6.2 g/dl (6.4-8.2) L 07/13/17 06:00 Albumin 3.2 g/dl (3.4-5.0) L 07/13/17 06:00 A/P: POD1 s/p lap fer for acute cholecystitis need better pain control - will adjust meds got zofran for nausea encouraged to have some po and to hydrate herself, IVF continue postop abx completed last night not ready for discharge will reassess for d/c home in am Problem List - Problems (1) Calculus of gallbladder with acute cholecystitis without obstruction Code(s): K80.00 - CALCULUS OF GALLBLADDER W ACUTE CHOLECYST W/O OBSTRUCTION (2) Umbilical hernia without obstruction and without gangrene Code(s): K42.9 - UMBILICAL HERNIA WITHOUT OBSTRUCTION OR GANGRENE (3) Epigastric pain Code(s): R10.13 - EPIGASTRIC PAIN (4) Obesity (BMI 35.0-39.9 without comorbidity) Code(s): E66.9 - OBESITY, UNSPECIFIED
[2017-07-14] MEDS: FAMOTIDINE 20 MG/50 ML IVPB 20 MG/50 ML MG IVPB SCH (09:16)
[2017-07-14] MEDS: ACETAMINOPHEN 325 MG TABLET (FP) PO PRN (11:53)
--- NOTE | 2017-07-14 12:11 | DS ---
Physical Examination Vital Signs: Vital Signs Temperature 98.6 F 07/14/17 10:31 Pulse Rate 76 07/14/17 10:31 Respiratory Rate 20 07/14/17 10:31 Blood Pressure 106/81 07/14/17 10:31 O2 Sat by Pulse Oximetry (%) 96 07/13/17 21:00 Findings/Remarks: Pt seen and examined in bed. Has been up ambulating earlier today. No BM yet. Did have some breakfast. Feeling a little better, but still having pain in subxiphoid incision. Tylenol, ibuprofen being given, has not had best relief since had one morphine shot yesterday, but manageable. Ok going home with alternating Tyl/ibu and Percocet prn with stool softener. Nausea is better. Constitutional: Yes: No Distress, Calm, Obese Eyes: Yes: Conjunctiva Clear, EOM Intact. No: Sclera Icterus HENT: Yes: Atraumatic, Normocephalic Cardiovascular: Yes: Regular Rate and Rhythm. No: Murmur Respiratory: Yes: Regular, CTA Bilaterally Gastrointestinal: Yes: Normal Bowel Sounds, Soft, Abdomen, Obese, Hernia ( recurrent umbilical palpable small bulge), Tenderness (mainly incisional at subxiphoid site, mild RUQ and epigastric, no R/G) Musculoskeletal: No: Joint Stiffness, Joint Swelling Extremities: No: Cool, Cyanosis Integumentary: No: Jaundice, Rash Wound/Incision: Yes: Steri Strips (intact x 5), Open to air (left SENIOR LICENSING MANAGER), Dressing Dry and Intact (x5), Dressing Removed (x5) Neurological: Yes: Alert, Oriented Psychiatric: Yes: Alert, Oriented Labs: no new labs Discharge Summary Reason For Visit: acute cholecystitis Current Active Problems Calculus of gallbladder with acute cholecystitis without obstruction (Acute) Epigastric pain (Acute) Obesity (BMI 35.0-39.9 without comorbidity) (Acute) Procedures: Principal: laparoscopic cholecystectomy Hospital Course: 36yo obese F with h/o laparoscopic repair of incarcerated umbilical hernia, presented to ER with 2d of epigastric pain radiating to LUQ associated with nausea and vomiting. She had a normal wbc and LFTs, lipase, and CT showed gallbladder full of stones, confirmed on US with mild wall thickening suggestive of acute cholecystitis. She got fluids and antibiotic in the ER, and nausea improved with Zofran. She was admitted to surgery, and am labs showed a rise in bilirubin but other LFTs remained normal. She was taken for laparoscopic cholecystectomy, done with 5 ports to avoid the umbilical mesh, with findings of a large gallbladder full of very small stones. Postoperatively , she had no appetite the first day, and pain required medication adjustments to manage, but she tolerated clear liquids and did ambulate on POD1. She also had some nausea and lightheadedness, but by morning of POD2, she is feeling better. She tolerated some breakfast, has ambulated again, is voiding but had no BM, and pain is responding reasonably to tylenol, ibuprofen and oxycodone. She will get magnesium citrate prior to discharge, and go home today with alternating Tylenol and ibuprofen, with Rx for prn Percocet and Colace to take while using. She will f/u with surgery in 2 weeks, and has been referred to Dr. Ghosh to establish primary care. Condition: Improved - Instructions Diet, Activity, Other Instructions: Postoperative instructions: You had a laparoscopic cholecystectomy on 07/12/[address] Boo Rose of [facility]. Activity: Resume your usual activities gradually, but no heavy exertion or lifting more than 10-15 pounds for 1 month. Sticky tapes on incisions will fall off by themselves. You may shower daily, just pat the incision areas dry. No bath or swimming until skin incisions have healed. Eat lightly at first, but advance to your usual diet as tolerated. Pain: For pain, you may use and alternate Tylenol (acetaminophen-regular or extra strength) 2 tabs and/or ibuprofen 200mg (1-3 tabs) every 6 hours each as needed; this means that you can take one OR the other at 3-hour intervals. If you are prescribed a Tylenol/narcotic combination (Percocet) for severe pain, use it instead of plain Tylenol as needed and switch back when your pain starts decreasing. Do not take more than 4000mg of acetaminophen in a day. Take medications as prescribed or indicated on the labeling. Use the stool softener ( Colace/docusate sodium) twice daily as long as you are using Percocet and for a few days after. If stool gets too loose, you may decrease the dose. Follow-up: Call Dr. Rose's office at [phone] to make your postop appointment (Wednesday ~2 weeks after surgery). Clinic is held in the [facility] on the first floor of [facility]. Call the office if you have: * increasing pain not responsive to pain medication * fever of 101F or higher * vomiting * unusual or increasing bleeding or drainage from wounds * increasing redness or swelling at wound sites Also, you have been referred to Dr. Ramses Ghosh as a primary medical doctor; call for an appointment within 1-2 weeks. Referrals: Ramses Ghosh MD [Staff Physician] - Disposition: HOME - Home Medications Comprehensive Discharge Medication List: Ambulatory Orders Acetaminophen [Tylenol .Regular Strength -] 650 mg PO Q6H PRN tablet 07/14/17 Docusate Sodium [Colace -] 100 mg PO BID #60 capsule 07/14/17 Ibuprofen [Motrin -] 600 mg PO Q6H PRN tablet 07/14/17 Oxycodone HCl/Acetaminophen [Percocet 5-325 mg Tablet] 1 - 2 tab PO Q6H PRN #22 tab MDD 8 07/14/17
[2017-07-14] MEDS ORDERED: MAGNESIUM CITRATE 300 ML BOTTLE PO ONE (12:45)
--- NOTE | 2017-07-14 12:55 | PATH ---
Surgical Pathology Report Patient Name: RICHIE DUKES Med. Rec. #: [id number] /Age/Gender: 1980 (Age: 36) / F Account: [id number] Location: [facility] MED/SURG Taken: 07/12/2017 Received: 07/13/2017 Reported: 07/14/2017 Physicians: Boo Rose M.D. Specimen(s) Received GALLBLADDER Clinical History Acute cholecystitis Final Diagnosis GALLBLADDER, LAPAROSCOPIC CHOLECYSTECTOMY: FOCAL ACUTE AND CHRONIC CHOLECYSTITIS WITH CHOLELITHIASIS. Electronically Signed Audrey Maldonado M.D. Gross Description Received in formalin, labeled "gallbladder," is a 12.3 x 3.3 x 3.0 cm. gallbladder with a 0.2 cm. in length portion of cystic duct attached. The outer surface is mc-maxwell and varies from smooth to shaggy. The lumen contains green-yellow, tenacious bile as well as abundant yellow choleliths ranging from 0.1-1.5 cm in greatest dimension. The mucosa is green with focal erosions. The wall of the gallbladder averages 0.1 cm. in thickness. Ring Stamper sections are submitted in one cassette. /07/13/2017 [facility]07/13/2017
[2017-07-14 13:51] VITALS: TEMP 97.5
[2017-07-14 13:52] VITALS: BP 103/58; PULSE 82
== END 2017-07-14 15:00 | disposition home or self-care (01) | DRG 263 ==
LOC: JER 16:57 → JERBED 07-12 00:13 → J7W 07-12 07:00
PROVIDERS: ADMIT Surgery; ATTEND Surgery
PROC: 0FT44ZZ Resection of Gallbladder, Percutaneous Endoscopic Approach (ICD-10-PCS; principal; 2017-07-12 13:30)
DX: K80.00 Calculus of gallbladder with acute cholecystitis without obstruction (principal); K42.9 Umbilical hernia without obstruction or gangrene; R10.13 Epigastric pain; E66.9 Obesity, unspecified; Z68.36 Body mass index [BMI] 36.0-36.9, adult; R11.2 Nausea with vomiting, unspecified
CPT/HCPCS: 36415; 74176-TC; 76705-TC; 80053; 81003; 81015; 82550; 83605; 83690; 84484; 84703; 85025; 85610; 86850; 86900; 86901; 87086; 88304-TC; 94010; 94760; 99285-25; J0131; J7030

== ENCOUNTER 2018-06-16 11:21 | Emergency (ER) | payer OTHER ==
[2018-06-16 11:26] VITALS: BP 119/74; PULSE 90; TEMP 98.1; BMI 27.4
[2018-06-16] MEDS ORDERED: ACETAMINOPHEN 325 MG TABLET (FP) PO ONE (12:01)
--- NOTE | 2018-06-16 12:01 | PDOC ---
History of Present Illness - General Chief Complaint: Injury Stated Complaint: LT KNEE INJURY Time Seen by Provider: 06/16/18 11:31 History Source: Patient Exam Limitations: No Limitations - History of Present Illness Initial Comments: 06/16/18 11:54 HISTORY OF PRESENT ILLNESS: 37-year-old woman presents emergency department for evaluation of left knee pain status post slip and fall on ice . Patient reports she slipped falling forward landing with a hyperflexed left knee on concrete. Patient reports she had some external rotation of the ankle while landing. Patient was immediately able to extend knee after the injury was been unable to walk since the incident. No recent travel or sick contacts. PAST MEDICAL HISTORY: Denies past medical history SURGICAL HISTORY: Denies ALLERGIES: ASA REVIEW OF SYSTEMS General/Constitutional: Denies fever or chills. Denies weakness, weight change. HEENT: Denies change in vision. Denies ear pain or discharge. Denies sore throat. Cardiovascular: Denies chest pain or shortness of breath. Respiratory: Denies cough, wheezing, or hemoptysis. Gastrointestinal: Denies nausea, vomiting, diarrhea or constipation. Denies rectal bleeding. Genitourinary: Denies dysuria, frequency, or change in urination. Musculoskeletal: see HPI Skin and breasts: Denies rash or easy bruising. Neurologic: Denies headache, vertigo, loss of consciousness, or loss of sensation. Psychiatric: Denies depression or anxiety. Endocrine: Denies increased thirst. Denies abnormal weight change. Hematologic/Lymphatic: Denies anemia, easy bleeding, or history of blood clots. Allergic/Immunologic: Denies hives or skin allergy. Denies latex allergy. PHYSICAL EXAM General Appearance: Well-appearing, appropriately dressed. No apparent distress , no intoxication. HEENT: EOMI, PERRLA, normal ENT inspection, normal voice, TMs normal, pharynx normal. No conjunctival pallor. No photophobia, scleral icterus. Neck: Supple. Trachea midline. No tenderness, rigidity, carotid bruit, stridor , lymphadenopathy, or thyromegaly. Respiratory/Chest: Lungs CTAB. No shortness of breath, chest tenderness, respiratory distress, accessory muscle use. No crackles, rales, rhonchi, stridor , wheezing, dullness Cardiovascular: RRR. S1, S2. No JVD, murmur, bradycardia, tachycardia. Vascular Pulses: Dorsalis-Pedis (R): 2+, Dorsalis-Pedis (L): 2+ Gastrointestinal/Abdominal: Normal bowel sounds. Abdomen soft, non-distended. No tenderness or rebound tenderness. No organomegaly, pulsatile mass, guarding, hernia, hepatomegaly, splenomegaly. Lymphatic: No adenopathy, tenderness. Musculoskeletal/Extremities: Swelling and tenderness present to the inferomedial aspect of the left knee. No ecchymosis present. Patient able to actively flex knee less than 90. Patient unable to achieve full extension actively. Passive range of motion reveals full extension and flexion to 90. Negative Yaniv sign. 2+ DP pulses present bilaterally Integumentary: Appropriate color, dry, warm. No cyanosis, erythema, jaundice or rash Neurologic: cork painter and grader II-XII intact. Fully oriented, alert. Appropriate mood/affect. Motor strength 5/5. No appreciable EOM palsy, facial droop or sensory deficit. Past History - Past Medical History Allergies/Adverse Reactions: Allergies Allergy/AdvReac Type Severity Reaction Status Date / Time aspirin Allergy Rash Verified 07/12/17 12:46 Home Medications: Ambulatory Orders NK [No Known Home Medication] 06/16/18 Anemia: No COPD: No - Surgical History Abdominal Surgery: Yes (umb.hernia) - Reproductive History (#): 3 Para: 2 Spontaneous : 1 - Immunization History Immunization Up to Date: Yes - Suicide/Smoking/Psychosocial Hx Smoking History: Never smoked Have you smoked in the past 12 months: No Hx Alcohol Use: Yes (social) Drug/Substance Use Hx: No Substance Use Type: None Hx Substance Use Treatment: No *Physical Exam - Vital Signs Last Vital Signs Temp Pulse Resp BP Pulse Ox 98.1 F 90 18 119/74 96 06/16/18 11:24 06/16/18 11:24 06/16/18 11:24 06/16/18 11:24 06/16/18 11:24 Moderate Sedation - Procedure Monitoring Vital Signs: Procedure Monitoring Vital Signs Temperature 98.1 F 06/16/18 11:24 Pulse Rate 90 06/16/18 11:24 Respiratory Rate 18 06/16/18 11:24 Blood Pressure 119/74 06/16/18 11:24 O2 Sat by Pulse Oximetry (%) 96 06/16/18 11:24 Medical Decision Making - Medical Decision Making 06/16/18 12:03 A/P: 37-year-old woman which medical left knee pain status post slip and fall on ice yesterday Swelling and tenderness present to the inferomedial aspect of the left knee. Patella is mobile Negative Yaniv test Unable to ambulate secondary to pain Tylenol 650 mg orally now X-rays Reassess 06/16/18 12:55 X-ray of the knee as read by me: No acute fractures present. No obvious dislocation present. The immobilizer Crutches Follow-up with orthopedic as an outpatient Discharge home *DC/Admit/Observation/Transfer Diagnosis at time of Disposition: Left medial knee pain - Discharge Dispostion Disposition: HOME Condition at time of disposition: Stable Decision to Admit order: No - Referrals Referrals: Mohan Alex MD [Staff Physician] - - Patient Instructions Additional Instructions: Take Tylenol or Motrin as needed for pain. Follow manufacturers instructions for appropriate dosage. Try not to walk or bear weight on your left knee as much as possible for the next 3 days. Apply ice for 20 minutes and removed for at least 20 minutes before reapplying the ice. Keep immobilizer on your knee as much as possible to help decrease some of the swelling control pain. Whenever possible keep your foot elevated to decrease swelling to your ankle. You've been given the number for an orthopedist. If symptoms do not resolve within the next 7 days call the orthopedist for further evaluation. Return to emergency department for discoloration of the foot, numbness or tingling to the foot, worsening pain, or any other concerns. Thank you very much for choosing us to provide your emergent healthcare needs. Rosine Tylenol o Motrin segn sea necesario para el dolor. Siga las instrucciones del fabricante para la dosis apropiada. Trate de no caminar o soportar peso sobre friedman rodilla izquier[place] tanto flo sea posible francis los prximos 3 blandon. Aplique hielo francis 20 minutos y retrelo francis al menos 20 minutos antes de volver a aplicar el hielo. Mantenga el inmovilizador en friedman rodilla tanto flo sea posible para ayudar a disminuir algo del dolor de control de la hinchazn. Siempre que sea posible, mantenga el pie elevado para disminuir la hinchazn en el tobillo. Te munguia dado el nmero de un ortopedista. Si los sntomas no se resuelven en los prximos 7 blandon, llame al ortopedista para [place] evaluacin adicional. Regrese al departamento de emergencias para la decoloracin del pie, entumecimiento u hormigueo en el pie, empeoramiento del dolor o cualquier otra inquietud. Muchas preeti por elegirnos para satisfacer haven necesidades de atencin mdica de emergencia. - Post Discharge Activity Forms/Work/School Notes: Back to Work
[2018-06-16] MEDS ORDERED: ACETAMINOPHEN 325 MG TABLET (FP) ONE (12:04)
== END 2018-06-16 13:11 | disposition home or self-care (01) ==
LOC: JERFT 11:21
PROC: 2W3RXYZ Immobilization of Left Lower Leg using Other Device (ICD-10-PCS; principal; 2018-06-16)
DX: M25.562 Pain in left knee (principal); W00.2XXA Other fall from one level to another due to ice and snow, initial encounter; Y93.89 Activity, other specified; Y92.89 Other specified places as the place of occurrence of the external cause; Y99.8 Other external cause status
CPT/HCPCS: 73560-TC-LT-FY; 99282-25